=== PATIENT | male | born 1990 | race Caucasian/White ===

== ENCOUNTER 2020-11-06 08:22 | Emergency (ER) | payer OTHER ==
[2020-11-06 09:07] LABS: BASOPHIL 0.1 % (0-2); EOSINOPHIL 0.3 % (0-5); HGB 12.8 g/dl (13.2-18.0); LYMPHOCYTE 13.6 % (15-48); MCH 29.6 pg (25.0-31.0); MCHC 32.8 g/dL (32.0-36.0); MCV 90.1 fL (78.0-100.0); MONOCYTE 5.9 % (0-12); MPV 9.8 fL (6.0-9.5); NEUTROPHIL 79.7 % (41-80); NRBC 0; PLT 261 K/uL (150-400); RBC 4.33 M/uL (4.70-6.00); RDW 13.5 % (11.5-14.0); WBC 7.6 K/uL (4.0-10.5)
[2020-11-06 09:27] LABS: BUN/CREAT RATIO (CALC) 14.5 RATIO; CREATININE 0.55 mg/dL (0.67-1.17); POTASSIUM 3.6 mmol/L (3.5-5.1)
[2020-11-06] MEDS ORDERED: ONDANSETRON ODT4 MG PO (09:39)
== END 2020-11-06 10:26 | disposition home or self-care (01) ==
LOC: FER 08:22
PROVIDERS: Emergency Medicine
DX: F11.23 Opioid dependence with withdrawal (principal); F17.210 Nicotine dependence, cigarettes, uncomplicated; Z88.0 Allergy status to penicillin
CPT/HCPCS: 36415; 80048; 82550; 85025; J2405; J7030